=== PATIENT | female | born 1960 | race Caucasian/White ===

== ENCOUNTER 2017-05-31 12:21 | Inpatient (IN) | payer BC ==
[2017-05-31 12:40] LABS: ADD MAN DIFF? NO
[2017-05-31 12:43] LABS: BASO % 0 % (0-3); EOS # 0.1 x10^3/uL (0.0-0.7); EOS % 1 % (0-3); HEMATOCRIT 28.1 % (36.0-47.0); HEMOGLOBIN 9.8 g/dL (12.0-15.5); LYMPH # 3.1 x10^3/uL (1.0-4.8); LYMPH % 30 % (24-48); MEAN CORPUSCULAR HEMOGLOBIN 35 pg (25-35); MEAN CORPUSCULAR HGB CONC 35 g/dL (31-37); MEAN CORPUSCULAR VOLUME 102 fL (79-100); MONO # 0.9 x10^3/uL (0.0-1.1); MONO % 9 % (0-9); NEUT # 6.2 x10^3uL (1.8-7.7); NEUT % 60 % (31-73); PLATELET COUNT 367 x10^3/uL (140-400); RED BLOOD COUNT 2.77 x10^6/uL (3.50-5.40); RED CELL DISTRIBUTION WIDTH 13.7 % (11.5-14.5); WHITE BLOOD COUNT 10.3 x10^3/uL (4.0-11.0)
[2017-05-31 12:54] LABS: ANION GAP 11 (6-14); BLOOD UREA NITROGEN 35 mg/dL (7-20); CALCIUM 9.3 mg/dL (8.5-10.1); CARBON DIOXIDE 26 mmol/L (21-32); CHLORIDE 107 mmol/L (98-107); CREATININE 0.8 mg/dL (0.6-1.0); GFR 73.7; GLUCOSE 130 mg/dL (70-99); POTASSIUM 3.7 mmol/L (3.5-5.1); SODIUM 144 mmol/L (136-145)
[2017-05-31] MEDS: IV NORMAL SALINE 1000ML BAG 1,000 ML IV ×2 (12:57→13:57)
[2017-05-31 12:58] LABS: PROTHROMBIN TIME PATIENT 12.7 SEC (11.7-14.0)
[2017-05-31 12:59] LABS: ALBUMIN 3.4 g/dL (3.4-5.0); ALK PHOS 79 U/L (46-116); ALT (SGPT) 23 U/L (14-59); AST (SGOT) 16 U/L (15-37); DIRECT BILIRUBIN < 0.1 mg/dL (0.0-0.2); LIPASE 189 U/L (73-393); MAGNESIUM 1.8 mg/dL (1.8-2.4); TOTAL BILIRUBIN 0.2 mg/dL (0.2-1.0); TOTAL PROTEIN 6.8 g/dL (6.4-8.2)
[2017-05-31 13:02] LABS: TROPONINI < 0.017 ng/mL (0.000-0.055)
[2017-05-31 13:08] LABS: CKMB MASS 0.7 ng/mL (0.0-3.6); CREATINE KINASE 47 U/L (26-192)
[2017-05-31 13:08] LABS: NT-PRO BNP 199 pg/mL (0-124)
[2017-05-31 13:15] LABS: LACTIC ACID 2.8 mmol/L (0.4-2.0)
[2017-05-31 13:50] LABS: FECAL OB PT POSITIVE (NEG); NEG OBC FOB NEG; POS OBC FOB POS
[2017-05-31] MEDS ORDERED: ONDANSETRON PF 4 MG/2 ML VIAL. IV (14:00)
[2017-05-31] MEDS: PANTOPRAZOLE IV PUSH 40 MG VIAL. IVP (14:10)
[2017-05-31] MEDS: PANTOPRAZOLE SODIUM IV DRIP 80 MG in IV NORMAL SALINE 100ML 100 ML IV (14:10)
[2017-05-31 14:11] LABS: BARBITURATES NEG (NEG); BENZODIAZEPINES NEG (NEG); CANNABINOIDS NEG (NEG); COCAINE NEG (NEG); METHADONE NEG (NEG); OPIATES NEG (NEG); PHENCYCLIDINE NEG (NEG)
[2017-05-31] MEDS: IV DEXTROSE 5 %-0.45 % NACL 1,000 ML IV (14:11)
[2017-05-31 14:14] LABS: AMPHETAMINE/METHAMPHETAMINE NEG (NEG); ETHANOL, URINE NEG (NEG)
[2017-05-31 16:22] LABS: LACTIC ACID 0.7 mmol/L (0.4-2.0)
[2017-05-31 19:33] LABS: HEMATOCRIT 21.8 % (36.0-47.0); HEMOGLOBIN 7.5 g/dL (12.0-15.5); MEAN CORPUSCULAR HEMOGLOBIN 35 pg (25-35); MEAN CORPUSCULAR HGB CONC 34 g/dL (31-37); MEAN CORPUSCULAR VOLUME 103 fL (79-100); PLATELET COUNT 263 x10^3/uL (140-400); RED BLOOD COUNT 2.13 x10^6/uL (3.50-5.40); WHITE BLOOD COUNT 7.6 x10^3/uL (4.0-11.0)
[2017-05-31 21:06] LABS: TROPONINI < 0.017 ng/mL (0.000-0.055)
[2017-05-31] MEDS: MORPHINE SULFATE 4 MG/ML DISP.SYRIN. IV (22:08)
[2017-06-01] MEDS: MORPHINE SULFATE 4 MG/ML DISP.SYRIN. IV ×2 (01:17→07:53)
[2017-06-01] MEDS: PANTOPRAZOLE SODIUM IV DRIP 80 MG in IV NORMAL SALINE 100ML 100 ML IV ×3 (01:18→18:00)
[2017-06-01 05:44] LABS: ADD MAN DIFF? NO
[2017-06-01 05:57] LABS: BASO # 0.1 x10^3/uL (0.0-0.2); BASO % 1 % (0-3); EOS # 0.1 x10^3/uL (0.0-0.7); EOS % 1 % (0-3); HEMATOCRIT 22.2 % (36.0-47.0); HEMOGLOBIN 7.4 g/dL (12.0-15.5); LYMPH # 1.7 x10^3/uL (1.0-4.8); LYMPH % 22 % (24-48); MEAN CORPUSCULAR HEMOGLOBIN 35 pg (25-35); MEAN CORPUSCULAR HGB CONC 33 g/dL (31-37); MEAN CORPUSCULAR VOLUME 105 fL (79-100); MONO # 0.4 x10^3/uL (0.0-1.1); MONO % 6 % (0-9); NEUT # 5.1 x10^3uL (1.8-7.7); NEUT % 69 % (31-73); PLATELET COUNT 271 x10^3/uL (140-400); RED BLOOD COUNT 2.12 x10^6/uL (3.50-5.40); RED CELL DISTRIBUTION WIDTH 14.1 % (11.5-14.5); WHITE BLOOD COUNT 7.4 x10^3/uL (4.0-11.0)
[2017-06-01 06:27] LABS: ANION GAP 10 (6-14); BLOOD UREA NITROGEN 24 mg/dL (7-20); CALCIUM 7.8 mg/dL (8.5-10.1); CARBON DIOXIDE 24 mmol/L (21-32); CHLORIDE 113 mmol/L (98-107); CREATININE 0.7 mg/dL (0.6-1.0); GFR 85.9; GLUCOSE 99 mg/dL (70-99); POTASSIUM 3.1 mmol/L (3.5-5.1); SODIUM 147 mmol/L (136-145)
[2017-06-01] MEDS ORDERED: fentaNYL PF VIAL 100 MCG/2 ML VIAL IV ×4 (07:00→13:00)
[2017-06-01] MEDS ORDERED: PROCHLORPERAZINE 10 MG/2 ML VIAL. IV (07:00)
[2017-06-01] MEDS: IV RINGERS,LACTATED 1000ML 1,000 ML IV ×2 (07:00→12:48)
[2017-06-01] MEDS ORDERED: MORPHINE SULFATE 4 MG/ML DISP.SYRIN. IV (07:00)
[2017-06-01] MEDS ORDERED: ONDANSETRON PF 4 MG/2 ML VIAL. IV ×2 (07:00→14:15)
[2017-06-01] MEDS ORDERED: LIDOCAINE 1% PF 2 ML VIAL. ID ×2 (07:00→13:00)
[2017-06-01] MEDS ORDERED: PROPOFOL 20 ML IV (12:56)
[2017-06-01] MEDS ORDERED: LIDOCAINE 2% 100 MG/5 ML SYRINGE. (12:56)
[2017-06-01] MEDS ORDERED: MIDAZOLAM HCL/PF 2 MG/2 ML VIAL. IV (13:00)
[2017-06-01] MEDS ORDERED: DOCUSATE SODIUM 100 MG CAPSULE. PO (14:15)
[2017-06-01] MEDS ORDERED: hydrALAZINE 20 MG/ML VIAL. IVP (14:15)
[2017-06-01] MEDS: GABAPENTIN 300 MG CAPSULE. PO ×2 (15:18→19:57)
[2017-06-01] MEDS: SUCRALFATE 1 GM TABLET. PO (15:18)
[2017-06-01] MEDS: DULoxetine HCL 30 MG CAPSULE.DR PO (15:18)
[2017-06-01] MEDS: POTASSIUM CL 40MEQ D5-0.45NACL 1,000 ML IV (15:20)
[2017-06-01] MEDS: rOPINIRole 1 MG TABLET. PO (19:58)
[2017-06-02] MEDS: MORPHINE SULFATE 4 MG/ML DISP.SYRIN. IV ×2 (01:25→23:52)
[2017-06-02] MEDS: POTASSIUM CL 40MEQ D5-0.45NACL 1,000 ML IV ×2 (03:27→15:38)
[2017-06-02] MEDS: PANTOPRAZOLE SODIUM IV DRIP 80 MG in IV NORMAL SALINE 100ML 100 ML IV (03:29)
[2017-06-02 04:16] LABS: ADD MAN DIFF? NO
[2017-06-02 04:29] LABS: BASO # 0.1 x10^3/uL (0.0-0.2); BASO % 1 % (0-3); EOS # 0.2 x10^3/uL (0.0-0.7); EOS % 3 % (0-3); LYMPH # 1.5 x10^3/uL (1.0-4.8); LYMPH % 28 % (24-48); MEAN CORPUSCULAR HEMOGLOBIN 35 pg (25-35); MEAN CORPUSCULAR HGB CONC 34 g/dL (31-37); MEAN CORPUSCULAR VOLUME 103 fL (79-100); MONO # 0.4 x10^3/uL (0.0-1.1); MONO % 8 % (0-9); NEUT # 3.3 x10^3uL (1.8-7.7); NEUT % 60 % (31-73); PLATELET COUNT 251 x10^3/uL (140-400); RED BLOOD COUNT 1.94 x10^6/uL (3.50-5.40); RED CELL DISTRIBUTION WIDTH 13.7 % (11.5-14.5); WHITE BLOOD COUNT 5.5 x10^3/uL (4.0-11.0)
[2017-06-02 04:50] LABS: HEMATOCRIT 20.1 % (36.0-47.0); HEMOGLOBIN 6.8 g/dL (12.0-15.5)
[2017-06-02 04:58] LABS: ANION GAP 6 (6-14); BLOOD UREA NITROGEN 9 mg/dL (7-20); CALCIUM 8.1 mg/dL (8.5-10.1); CARBON DIOXIDE 25 mmol/L (21-32); CHLORIDE 109 mmol/L (98-107); CREATININE 0.6 mg/dL (0.6-1.0); GFR 102.7; GLUCOSE 105 mg/dL (70-99); SODIUM 140 mmol/L (136-145)
[2017-06-02 05:05] LABS: POTASSIUM 4.2 mmol/L (3.5-5.1)
[2017-06-02] MEDS: traMADol 50 MG TABLET PO ×2 (06:25→22:43)
[2017-06-02] MEDS: GABAPENTIN 300 MG CAPSULE. PO ×3 (07:58→20:47)
[2017-06-02] MEDS: DULoxetine HCL 30 MG CAPSULE.DR PO (07:58)
[2017-06-02] MEDS: SUCRALFATE 1 GM TABLET. PO ×2 (07:58→15:36)
[2017-06-02 09:40] LABS: IMMEDIATE SPIN CROSSMATCH 1 1
[2017-06-02 12:56] LABS: HEMATOCRIT 23.6 % (36.0-47.0)
[2017-06-02 12:56] LABS: HEMOGLOBIN 7.9 g/dL (12.0-15.5)
[2017-06-02] MEDS: PANTOPRAZOLE 40 MG TABLET.DR. PO (15:36)
[2017-06-02] MEDS: rOPINIRole 1 MG TABLET. PO (20:47)
[2017-06-03] MEDS: POTASSIUM CL 40MEQ D5-0.45NACL 1,000 ML IV (06:37)
[2017-06-03] MEDS: MORPHINE SULFATE 4 MG/ML DISP.SYRIN. IV (06:41)
[2017-06-03] MEDS: SUCRALFATE 1 GM TABLET. PO ×2 (08:03→15:51)
[2017-06-03] MEDS: DULoxetine HCL 30 MG CAPSULE.DR PO (08:03)
[2017-06-03] MEDS: PANTOPRAZOLE 40 MG TABLET.DR. PO ×2 (08:03→15:51)
[2017-06-03] MEDS: GABAPENTIN 300 MG CAPSULE. PO ×2 (08:03→14:53)
[2017-06-03] MEDS: ACETAMINOPHEN 325 MG TABLET. PO (08:11)
[2017-06-03 09:21] LABS: ADD MAN DIFF? NO
[2017-06-03 09:26] LABS: BASO # 0.1 x10^3/uL (0.0-0.2); BASO % 2 % (0-3); EOS # 0.3 x10^3/uL (0.0-0.7); EOS % 6 % (0-3); HEMATOCRIT 23.9 % (36.0-47.0); HEMOGLOBIN 8.2 g/dL (12.0-15.5); LYMPH % 39 % (24-48); MEAN CORPUSCULAR HEMOGLOBIN 34 pg (25-35); MEAN CORPUSCULAR HGB CONC 34 g/dL (31-37); MEAN CORPUSCULAR VOLUME 100 fL (79-100); MONO # 0.4 x10^3/uL (0.0-1.1); MONO % 7 % (0-9); NEUT # 2.4 x10^3uL (1.8-7.7); NEUT % 47 % (31-73); PLATELET COUNT 265 x10^3/uL (140-400); RED BLOOD COUNT 2.39 x10^6/uL (3.50-5.40); WHITE BLOOD COUNT 5.1 x10^3/uL (4.0-11.0)
[2017-06-03 09:37] LABS: ANION GAP 9 (6-14); BLOOD UREA NITROGEN 7 mg/dL (7-20); CALCIUM 8.4 mg/dL (8.5-10.1); CARBON DIOXIDE 24 mmol/L (21-32); CHLORIDE 107 mmol/L (98-107); CREATININE 0.7 mg/dL (0.6-1.0); GFR 85.9; GLUCOSE 157 mg/dL (70-99); POTASSIUM 3.7 mmol/L (3.5-5.1); SODIUM 140 mmol/L (136-145)
[2017-06-03] MEDS: HYDROcodone/APAP 5/325MG 1 TAB TABLET PO (13:06)
[2017-06-03] MEDS: BUTALB/APAP/CAFEIN 50/325/40MG TABLET. PO (16:22)
== END 2017-06-03 17:00 | disposition home or self-care (01) | DRG 381 ==
LOC: ER 12:21 → 6 SOUTH 13:39
PROC: 0DB68ZX Excision of Stomach, Via Natural or Artificial Opening Endoscopic, Diagnostic (ICD-10-PCS; principal; 2017-06-01 13:00)
PROC: 30233N1 Transfusion of Nonautologous Red Blood Cells into Peripheral Vein, Percutaneous Approach (ICD-10-PCS; 2017-06-01 13:09)
DX: K22.10 Ulcer of esophagus without bleeding (principal); D62 Acute posthemorrhagic anemia; K29.01 Acute gastritis with bleeding; K92.2 Gastrointestinal hemorrhage, unspecified; K21.0 Gastro-esophageal reflux disease with esophagitis; K29.81 Duodenitis with bleeding; M19.90 Unspecified osteoarthritis, unspecified site; D50.0 Iron deficiency anemia secondary to blood loss (chronic); F32.9 Major depressive disorder, single episode, unspecified; G25.81 Restless legs syndrome; G43.909 Migraine, unspecified, not intractable, without status migrainosus; K44.9 Diaphragmatic hernia without obstruction or gangrene; E87.6 Hypokalemia; Z90.49 Acquired absence of other specified parts of digestive tract; Z98.51 Tubal ligation status; Z80.0 Family history of malignant neoplasm of digestive organs; Z87.891 Personal history of nicotine dependence; Z82.49 Family history of ischemic heart disease and other diseases of the circulatory system
CPT/HCPCS: 36415; 71045; 80048; 80076; 80307; 82274; 82553; 83605; 83690; 83735; 83880; 84443; 84484; 85014; 85018; 85025; 85027; 85610; 86850; 86900; 86901; 86920; 88305; 88342; 93005; 96361; 96374; 99285; 99285-25; 99406; C9113; J2270; J2704; J7030; J7042; P9016

== ENCOUNTER → 2017-11-14 | Outpatient (CLI) | payer BC ==
[2017-06-03 15:46] VITALS: BP 96/63
[~2017-11-14] MED LIST: CIPR500T PO; DIVA500T2 PO; DULO60CA6 PO; GABA-586 PO; OMEP40CA5 PO; ONDA4TAB12 PO; Pantoprazole PO; ROPI0.5T PO; SUCR1TAB35 PO; TRAM50TA PO
--- NOTE | 2017-11-14 16:50 | KCIC ---
Bilateral hand radiograph 11/14/2017 12:00 AM INDICATION: Chronic bilateral hand pain COMPARISON: None available. TECHNIQUE: 3 views of each hand are provided. FINDINGS: There is no acute fracture or dislocation. Bilateral degenerative changes are identified at the carpometacarpal articulation with joint space narrowing, subcortical sclerosis and marginal osteophytosis compatible with moderate osteoarthrosis. Mild demineralization. Regional soft tissues are within normal limits. There is no soft tissue gas or osseous erosion. IMPRESSION: Bilateral first carpometacarpal articulation osteoarthrosis. No acute fracture or dislocation. Electronically signed by: Arlyn Kolb MD (11/14/2017 4:47 PM) [facility]
== END | disposition home or self-care (01) ==
LOC: KCIC 08:54
PROVIDERS: ATTEND Internal Medicine Rheumatology
DX: M19.042 Primary osteoarthritis, left hand (principal); M19.041 Primary osteoarthritis, right hand; M81.8 Other osteoporosis without current pathological fracture; N18.3 Chronic kidney disease, stage 3 (moderate); K21.9 Gastro-esophageal reflux disease without esophagitis; G43.909 Migraine, unspecified, not intractable, without status migrainosus; Z87.891 Personal history of nicotine dependence; Z86.2 Personal history of diseases of the blood and blood-forming organs and certain disorders involving the immune mechanism; Z90.49 Acquired absence of other specified parts of digestive tract; Z82.49 Family history of ischemic heart disease and other diseases of the circulatory system; Z80.0 Family history of malignant neoplasm of digestive organs
CPT/HCPCS: 73130

== ENCOUNTER → 2017-11-20 | Outpatient (CLI) | payer BC ==
[2017-06-03 15:46] VITALS: BP 96/63
--- NOTE | 2017-11-20 18:04 | KCIC ---
Bilateral digital screening mammograms: Reason for examination: Routine screening. Comparison is made to previous study dated 11/04/2013. Interpretation was made with the benefit of CAD. The skin and nipples show no abnormalities. No abnormal axillary lymph nodes are seen. The breast parenchyma shows scattered fibroglandular density. (Breast density: Category B.) There are no dominant masses, suspicious calcifications or architectural distortions. Impression: No evidence of malignancy. Recommend routine screening. BI-RADS Category 1: Negative. "Our facility is accredited by the [employer] Mammography [employer]." This patient's information has been entered into a reminder system for the patient to be notified with the results of her examination and a target date for the next mammogram. Electronically signed by: Kendal Huang MD (11/20/2017 6:01 PM) [facility]
== END | disposition home or self-care (01) ==
LOC: KCIC MAMMO 07:44
PROVIDERS: ATTEND Family Medicine
DX: Z12.31 Encounter for screening mammogram for malignant neoplasm of breast (principal); E87.6 Hypokalemia; N18.3 Chronic kidney disease, stage 3 (moderate); G43.909 Migraine, unspecified, not intractable, without status migrainosus; K21.9 Gastro-esophageal reflux disease without esophagitis; M19.041 Primary osteoarthritis, right hand; M19.042 Primary osteoarthritis, left hand; Z87.891 Personal history of nicotine dependence; Z86.2 Personal history of diseases of the blood and blood-forming organs and certain disorders involving the immune mechanism; Z90.49 Acquired absence of other specified parts of digestive tract; Z82.49 Family history of ischemic heart disease and other diseases of the circulatory system; Z80.0 Family history of malignant neoplasm of digestive organs
CPT/HCPCS: 77067

== ENCOUNTER → 2018-11-25 | Outpatient (CLI) | payer BC ==
[2017-06-03 15:46] VITALS: BP 96/63
[~2018-11-25] MED LIST changes: -GABA-586 PO; +GABA300C18 PO; +OMEP40CA45 PO; -OMEP40CA5 PO
--- NOTE | 2018-11-25 17:54 | KCIC ---
Bilateral digital screening mammograms with 3-D tomosynthesis: Reason for examination: Routine screening. Comparison is made to previous studies dated 11/20/2017 and 11/04/2013. Bilateral mammograms in CC and oblique projections were obtained with 2-D imaging and 3-D tomosynthesis imaging on a Siemens Inspiration unit and reviewed on the workstation. Interpretation was made with the benefit of CAD. The skin and nipples show no abnormalities. No abnormal axillary lymph nodes are seen. The breast parenchyma shows scattered fatty and fibroglandular density. (Breast density: Category B.) There appears to be subtle 1 cm nodular density at the 6:00 B position of the left breast 4.5 cm from the nipple. This can be further evaluated with ultrasound. There are no other dominant masses, suspicious calcifications or architectural distortion. Impression: 1 cm nodular density in the 6:00 B position of the left breast 4.5 cm from the nipple. Recommend further evaluation with ultrasound. BI-RADS Category 0: Incomplete. Needs additional imaging evaluation. "Our facility is accredited by the [employer] Mammography [employer]." This patient's information has been entered into a reminder system for the patient to be notified with the results of her examination and a target date for the next mammogram. Electronically signed by: Kendal Huang MD (11/25/2018 5:51 PM) [facility]
== END | disposition home or self-care (01) ==
LOC: KCIC MAMMO 08:14
PROVIDERS: ATTEND Internal Medicine
DX: N64.89 Other specified disorders of breast (principal); Z12.31 Encounter for screening mammogram for malignant neoplasm of breast
CPT/HCPCS: 77063; 77067

== ENCOUNTER → 2018-12-31 | Outpatient (CLI) | payer BC ==
[2017-06-03 15:46] VITALS: BP 96/63
--- NOTE | 2018-12-31 14:13 | KCIC ---
NECK SOFT TISSUE, DOPPLER CAROTID BILAT History: Chronic migraine. Memory loss. Visual changes. Right neck pain. Technique: Duplex sonography of the cervical portion of both carotid arteries was performed. Real-time grayscale, color flow Doppler, and Doppler spectral waveform analysis is performed. Real-time grayscale evaluation of the right neck soft tissues. PQRS Compliance Statement - Stenosis calculations for CT, MR and conventional angiography are based upon measurement of the distal ICA diameter in accordance with the NASCET methodology. Stenosis calculations for carotid ultrasound studies are derived from validated velocity criteria which are known to correlate with the NASCET methodology. Findings: Right side: Peak systolic flow velocity of the CCA is 81 cm/sec. Peak systolic flow velocity of the ICA is 79 cm/sec. The ICA/CCA ratio is 0.98. Peak end diastolic flow velocity of the ICA is 27 cm/sec. The peak systolic velocity of the ECA is 74 cm/sec. No significant plaque formation is identified. Left side: Peak systolic flow velocity of the CCA is 59 cm/sec. Peak systolic flow velocity of the ICA is 80 cm/sec. The ICA/CCA ratio is 1.16. Peak end diastolic flow velocity of the ICA is 35 cm/sec. Peak systolic flow velocity of the ECA is 75 cm/sec. No significant plaque formation is identified. Vertebral arteries: Bilateral vertebral arteries demonstrate antegrade flow. Ultrasound evaluation of the right neck soft tissues demonstrates no pathology. No mass or abscess. No pathologic lymphadenopathy. IMPRESSION: 1. No hemodynamically significant internal carotid artery stenosis is identified. 2. No ultrasound evidence of abnormality within the right neck soft tissues. Electronically signed by: Bebo Ann DO (12/31/2018 2:10 PM) [facility]
--- NOTE | 2018-12-31 16:19 | KCIC ---
Left breast ultrasound: Reason for examination: Possible nodule in the 6:00 position of the left breast mammographically. Comparison is made to mammographic exam dated 11/25/2018. Ultrasound examination of the left breast was performed with attention to the area of mammographic concern and the axilla. No discrete cystic or solid nodules or architectural distortions are seen. No abnormal appearing lymph nodes are seen in the axilla. IMPRESSION: No suspicious abnormality seen in the left breast sonographically. The area of mammographic concern may have represented some superimposed tissues. Recommend reevaluation with left breast mammograms and ultrasound in 6 months. BI-RADS Category 3: Probably Benign. "Our facility is accredited by the [employer] Mammography Program." This patient's information has been entered into a reminder system for the patient to be notified with the results of her examination and a target date for the next mammogram. Electronically signed by: Kendal Huang MD (12/31/2018 4:16 PM) [facility]
== END | disposition home or self-care (01) ==
LOC: KCIC US 08:24
PROVIDERS: ATTEND Internal Medicine
DX: G43.709 Chronic migraine without aura, not intractable, without status migrainosus (principal); M79.12 Myalgia of auxiliary muscles, head and neck; R41.3 Other amnesia; F17.200 Nicotine dependence, unspecified, uncomplicated
CPT/HCPCS: 76536; 76641; 93880

== ENCOUNTER → 2019-11-18 | Outpatient (CLI) | payer BC ==
[2017-06-03 15:46] VITALS: BP 96/63
--- NOTE | 2019-11-18 11:22 | KCIC ---
Bone mineral density exam History: Osteoporosis Comparison: None Findings: Bone mineral density examination utilizing DEXA was performed. Left hip bone mineral density of 0.643 g/cm2 corresponds with a T score -2.5, Z score -1.5. The bone mineral density of the lumbar spine was 0.936 g/cm2 which corresponds with a T-score of -1.0, Z score 0.4. By World [employer] on Osteoporosis criteria, a T score of 0 to-1 SD is considered to be within normal limits. A T score of -1 to -2.5 SD is considered osteopenia. A T score less than -2.5 SD is considered osteoporosis Impression: 1. There is osteoporosis of the left hip. Bone density of the mean of the lumbar spine is borderline between normal and osteopenia although probably somewhat artificially elevated due to the presence of degenerative change. Electronically signed by: Gamal Thomas MD (11/18/2019 11:20 AM) [id number]
== END | disposition home or self-care (01) ==
LOC: KCIC DEXA 09:05
PROVIDERS: ATTEND Internal Medicine
DX: M81.8 Other osteoporosis without current pathological fracture (principal); R23.4 Changes in skin texture; N64.59 Other signs and symptoms in breast; Z78.0 Asymptomatic menopausal state; M85.88 Other specified disorders of bone density and structure, other site
CPT/HCPCS: 77080

== ENCOUNTER → 2019-12-22 | Outpatient (CLI) | payer BC ==
[2017-06-03 15:46] VITALS: BP 96/63
--- NOTE | 2019-12-22 10:05 | KCIC ---
Bilateral diagnostic digital mammograms with 3-D tomosynthesis: Reason for examination: Follow-up exam for nodular density. Comparison is made to previous studies dated back to 11/04/2013. Bilateral mammograms in CC and oblique projections were obtained with 2-D imaging and 3-D tomosynthesis imaging on a Siemens Inspiration unit and reviewed on the workstation. Interpretation was made with the benefit of CAD. The skin and nipples show no abnormalities. No abnormal axillary lymph nodes are seen. The breast parenchyma shows scattered fatty and fibroglandular density. (Breast density: Category B.) There are no new dominant masses, suspicious calcifications or architectural distortion. Impression: No evidence of malignancy. Ultrasound to follow. BI-RAD Category 0: Incomplete. Needs additional imaging evaluation. Left breast ultrasound: Comparison is made to previous study dated 12/31/2018. Left breast ultrasound including the retroareolar and axillary regions of the left breast was performed. No discrete cystic or solid nodules are seen. There is some mild ductal ectasia. No abnormal appearing lymph nodes are seen in the axilla. IMPRESSION: No focal abnormality evident in the left breast. Recommend routine mammographic follow-up. BI-RADS Category 2: Benign. "Our facility is accredited by the [employer] Mammography [employer]." This patient's information has been entered into a reminder system for the patient to be notified with the results of her examination and a target date for the next mammogram. Electronically signed by: Kendal Huang MD (12/22/2019 10:02 AM) [id number]
== END ==
LOC: KCIC MAMMO 08:27
PROVIDERS: ATTEND Internal Medicine
DX: N60.42 Mammary duct ectasia of left breast (principal)
CPT/HCPCS: 76641; 77066; G0279; 77062

== ENCOUNTER → 2020-04-12 | Outpatient (CLI) | payer BC ==
[2017-06-03 15:46] VITALS: BP 96/63
[~2020-04-12] MED LIST changes: -CIPR500T PO; +CIPR500T2 PO
--- NOTE | 2020-04-12 09:21 | KCIC ---
MRI left knee without contrast HISTORY: Primary osteoarthritis left knee. Left knee pain. FINDINGS: No bone contusion, fracture or osteonecrosis. There is mild reactivated hematopoietic bone marrow at the distal femur and proximal tibia. The anterior and posterior cruciate ligaments are intact. There is a Willson's cyst which measures 5.5 cm craniocaudal by 2.0 cm AP by 3.0 cm transverse. The patellofemoral compartment demonstrates mild thinning of the articular cartilage of the upper pat karen. There is mild bone spurring of the patella. No lateralization of the patella. Patellofemoral li gaments intact. Extensor tendon mechanism intact. Medial tibiofemoral compartment demonstrates high-grade partial thickness articular cartilage loss an d bone spurring of the femoral condyle and tibial plateau. Medial collateral ligament intact. There i s a horizontal oblique medial meniscus tear through the posterior horn breaching the periphery and in ferior surface, with loss of meniscal hoop tension. Lateral tibiofemoral compartment demonstrates no cartilage defect. Lateral meniscus intact. There is intratendinous signal abnormality of the popliteus tendon, may represent an old injury or advanced te ndinosis, no partial-thickness or full-thickness tendon tear evident. The biceps femoris tendon, fibu lar collateral ligament and iliotibial band are intact. IMPRESSION: 1. Medial meniscus tear as described above. 2. Osteoarthritis of the medial compartment and patellofemoral compartment as described above. 3. Willson's cyst. 4. Amorphous signal abnormality of the popliteus tendon could be sequela of an old injury or advanced tendinosis. No tendon tear evident. 5. Expansion of the hematopoietic bone marrow of the distal femur and proximal tibia. This can be obs erved with obesity, chronic cigarette smoking or chronic lung disease, or chronic anemia. Electronically signed by: Pablo ePrez MD (04/12/2020 9:18 AM) [id number]
--- NOTE | 2020-04-12 10:52 | KCIC ---
STUDY: MRI of the right knee without contrast INDICATION: Right knee pain. Limited mobility. COMPARISON: No prior MRI. TECHNIQUE: Multiplanar MR imaging of the right knee performed without the use of intravenous or intra -articular contrast. FINDINGS: Menisci: Complex tear of the medial meniscus most notably from the posterior body segment through the posterior root with the meniscus in this region severely diminutive. Limited ability to detect displ aced meniscal tissue given motion. No full-thickness tear of the lateral meniscus. Cruciate ligaments: Degenerative heterogeneity of the ACL more so than PCL but intact traversing fibe rs remain visualized. Collateral ligaments: No acute injury. Tendons: No tendon tear or advanced tendinosis. Cartilage: Extensive full-thickness chondral loss at the weightbearing medial femorotibial compartmen t. Scattered less pronounced chondrosis at the lateral and patellofemoral compartments but still with areas of high-grade loss. Bones: Prominent tricompartmental osteophyte formation and degenerative bony remodeling. Subchondral edema/cystic change relating to chondrosis greatest at the medial compartment. Background heterogeneo us marrow signal without a focally aggressive lesion or fracture. Miscellaneous: Small knee joint effusion with mild synovitis. Several loose bodies the largest of whi ch is identified posterior to the nonweightbearing lateral femoral condyle. Mild TCL bursitis. A few small ganglion cysts. IMPRESSION: 1. Complex tearing/maceration involving the posterior half of the medial meniscus. The lateral menis cus is without a full-thickness tear. 2. Degenerative signal and morphology of the ACL more so than the PCL without evidence for full-thic kness tear noting motion. 3. End-stage medial femorotibial compartment arthrosis with large areas of full-thickness chondral l oss. Less pronounced but still advanced arthrosis at the lateral and patellofemoral compartments. Bul ky osteophyte formation. 4. Small knee joint effusion with synovitis and several loose bodies. Electronically signed by: ALEXANDER LITTLE MD (04/12/2020 10:50 AM) [id number]
--- NOTE | 2020-04-12 11:21 | KCIC ---
Study: MRI of the right hip without contrast INDICATION: Right hip pain. Osteoporosis. Osteoarthritis. COMPARISON: No previous MRI. TECHNIQUE: Multiplanar MR imaging of the right hip performed without the use of intravenous or intra- articular contrast. FINDINGS: Bones/hip: No acute fracture or avascular necrosis at the hips. Small, rounded focus of T1 hypointens e and T2 hyperintense signal within the intertrochanteric right femur approaching the lesser trochant er, image 10 series 6, measuring 9 mm. Mild degenerative marrow edema along the iliac side of the SI joints such as seen inferiorly on the left, image 9 series 2. Mild T2 signal elevation within the lef t sacral ala on image 10 series 2 without a discrete intervening fracture line noting visualization o nly the large [id number] STIR sequence. Poorly assessed lower lumbar spine but with bilateral face t arthrosis at L5-S1. Labrum/cartilage: Labral degeneration/mild degenerative tearing of the right acetabular labrum best s een on the coronal T2 sequence extending from anterior/superior to posterior/superior. The chondral t hinning at the right hip but no full-thickness defect is identified. Ligamentum teres: Intact. Greater trochanteric bursa: No fluid distention of the bursa on either side. Musculotendinous: No acute tendon tear or advanced tendinosis around the right hip. No localized musc ular edema. Miscellaneous: No hip joint effusion. No mass effect on the right sciatic nerve bundle. IMPRESSION: 1. At the intertrochanteric right femur, 9 mm rounded focus of elevated marrow signal (image 10 serie s 6). No similar abnormality seen elsewhere throughout the pelvis. In the absence of a known malignan cy this is most likely benign given its solitary nature but a malignant process is not fully excluded . It is recommended that either a nuclear medicine bone scan be performed or the patient return for c oronal pelvis full [id number] non-saturated T1, fat saturated T1 and fat saturated T1 post contras t sequences. 2. Mild marrow signal elevation within the left sacral ala. An early sacral insufficiency fracture is possible. This could be further evaluated with the bone scan or pelvic MRI sequences as detailed abo ve. 3. Labral degeneration/degenerative tearing on the right from anterior/superior to posterior/superior . There is a degree of chondral thinning at the right hip but no full-thickness chondral defect is id entified or degenerative subchondral marrow edema. Electronically signed by: ALEXANDER LITTLE MD (04/12/2020 11:19 AM) [id number]
== END ==
LOC: KCIC MRI 07:56
PROVIDERS: ATTEND Internal Medicine
DX: S83.242A Other tear of medial meniscus, current injury, left knee, initial encounter (principal); S73.191A Other sprain of right hip, initial encounter; M71.22 Synovial cyst of popliteal space [Baker], left knee; M25.761 Osteophyte, right knee; M81.0 Age-related osteoporosis without current pathological fracture; M15.0 Primary generalized (osteo)arthritis; X58.XXXA Exposure to other specified factors, initial encounter; Y93.89 Activity, other specified; Y92.89 Other specified places as the place of occurrence of the external cause; Y99.8 Other external cause status
CPT/HCPCS: 73721